=== PATIENT | male | born 1980 | race Caucasian/White ===

== ENCOUNTER 2023-02-21 19:37 | Inpatient (IN) | payer MEDICAID ==
[~2023-02-21] VITALS: Ht 180.3 cm; Wt 92.7 kg
[2023-02-21 19:44] VITALS: BP 106/54; PULSE 56; RESP 17; TEMP 98.3; O2SAT 98
[2023-02-21 20:44] VITALS: O2SAT 98
[2023-02-21 22:13] LABS: EOSINOPHILS # (AUTO) 0.1 K/uL (0-0.4); EOSINOPHILS % (AUTO) 1.1 % (0.0-4.0); HEMATOCRIT 36.6 % (36-52); HEMOGLOBIN 12.4 g/dL (12.0-18.0); LYMPHOCYTES # (AUTO) 2.1 K/uL (2.0-11.5); LYMPHOCYTES % (AUTO) 28.9 % (20.5-51.1); MEAN CORPUSCULAR HEMOGLOBIN 32 pg (27-31); MEAN CORPUSCULAR HGB CONC 34 g/dL (33-37); MEAN CORPUSCULAR VOLUME 95.4 fL (80-94); MONOCYTES # (AUTO) 0.7 K/uL (0.8-1.0); MONOCYTES % (AUTO) 9.5 % (1.7-9.3); NEUTROPHILS # (AUTO) 4.2 K/uL (1.8-7.7); NEUTROPHILS % (AUTO) 59.5 % (42.2-75.2); RED BLOOD CELL COUNT(AUTO) 3.84 MIL/uL (4.20-6.10); RED CELL DISTRIBUTION WIDTH 16.2 % (11.6-13.7); WHITE BLOOD COUNT (AUTO) 7.1 K/uL (4.8-10.8)
[2023-02-21 22:23] LABS: ANION GAP 11.2 (8-16); CALCIUM 9.8 mg/dL (8.5-10.1); CARBON DIOXIDE 33.1 mmol/L (21-32); CREATININE 0.7 mg/dL (0.6-1.3); POTASSIUM 5.3 mmol/L (3.5-5.1)
[2023-02-21 22:53] LABS: BASOPHILS # (AUTO) 0.1 K/uL (0.00-0.22)
[2023-02-21 22:55] LABS: PLATELET COUNT (AUTO) 38 K/uL (140-450)
[2023-02-22] VITALS (8 sets, daily range): BP systolic 111–133; BP diastolic 60–88; PULSE 60–81; RESP 18–20; TEMP 96.9–98.1; O2SAT 97–100
[2023-02-22] MEDS ORDERED: LORazepam 2 MG/ML VIAL ONE ×2 (01:31→05:16)
[2023-02-22] MEDS: LORazepam 2 MG/ML VIAL IVP ONE ×3 (02:49→05:59)
[2023-02-22] MEDS ORDERED: MIDAZOLAM 5 MG/1 ML VIAL ONE (04:57)
[2023-02-22] MEDS ORDERED: HYDROcodone/APAP 5/325 MG 1 TAB TAB PO PRN (05:15)
[2023-02-22] MEDS ORDERED: ACETAMINOPHEN 325 MG TAB PO PRN (05:15)
[2023-02-22] MEDS ORDERED: ALBUTEROL 0.083% 2.5 MG/3 ML NEBU INH PRN (05:15)
[2023-02-22] MEDS ORDERED: MORPHINE SULFATE 4 MG/ML SYR IVP PRN (05:15)
[2023-02-22] MEDS: NACL 0.9% 1,000 ML IV ONE (05:59)
[2023-02-22] MEDS: MIDAZOLAM 5 MG/5 ML VIAL IV ONE (06:29)
[2023-02-22] MEDS: IPRATROPIUM 0.02% 0.5 MG/2.5 ML NEBU INH SCH (07:00)
[2023-02-22] MEDS: levETIRAcetam 1,000 MG in NACL 0.9% 100 ML IV ONE (08:09)
[2023-02-22] MEDS: DEXT 5% / NACL 0.45% 1,000 ML IV SCH (09:22)
[2023-02-22] MEDS: LORazepam 2 MG/ML VIAL IVP PRN ×2 (10:01→12:32)
[2023-02-22] MEDS ORDERED: DIVALPROEX 500 MG TABEC PO SCH (12:10)
[2023-02-22] MEDS: DIVALPROEX 500 MG TABEC PO SCH (13:00)
[2023-02-22] MEDS: LORazepam 2 MG/ML VIAL IM/IVP PRN (15:16)
[2023-02-22 18:30] LABS: BASOPHILS % (AUTO) 0.6 % (0.0-2.0); EOSINOPHILS # (AUTO) 0.1 K/uL (0-0.4); HEMATOCRIT 34.2 % (36-52); HEMOGLOBIN 11.6 g/dL (12.0-18.0); LYMPHOCYTES # (AUTO) 1.2 K/uL (2.0-11.5); LYMPHOCYTES % (AUTO) 20.6 % (20.5-51.1); MEAN CORPUSCULAR HEMOGLOBIN 33 pg (27-31); MEAN CORPUSCULAR HGB CONC 34 g/dL (33-37); MEAN CORPUSCULAR VOLUME 95.7 fL (80-94); MONOCYTES # (AUTO) 0.6 K/uL (0.8-1.0); MONOCYTES % (AUTO) 9.9 % (1.7-9.3); NEUTROPHILS % (AUTO) 67.9 % (42.2-75.2); PLATELET COUNT (AUTO) 97 K/uL (140-450); RED BLOOD CELL COUNT(AUTO) 3.58 MIL/uL (4.20-6.10); RED CELL DISTRIBUTION WIDTH 16.4 % (11.6-13.7)
[2023-02-22 18:43] LABS: ALBUMIN 3.4 g/dL (3.4-5.0); ANION GAP 10.7 (8-16); CALCIUM 8.8 mg/dL (8.5-10.1); CARBON DIOXIDE 26.6 mmol/L (21-32); CREATININE 0.6 mg/dL (0.6-1.3); POTASSIUM 5.3 mmol/L (3.5-5.1); TOTAL BILIRUBIN 0.4 mg/dL (0.0-1.0); TOTAL PROTEIN, SERUM 6.8 g/dL (6.4-8.2)
[2023-02-22] MEDS: levETIRAcetam 1,500 MG in NACL 0.9% 100 ML IV SCH (20:13)
[2023-02-22] MEDS ORDERED: levETIRAcetam 500 MG in NACL 0.9% 100 ML IV SCH (21:00)
[2023-02-23] VITALS (13 sets, daily range): BP systolic 114–129; BP diastolic 62–80; PULSE 55–86; RESP 16–20; TEMP 96.7–98.2; O2SAT 93–99
[2023-02-23 06:57] LABS: BASOPHILS % (AUTO) 0.3 % (0.0-2.0); EOSINOPHILS % (AUTO) 0.4 % (0.0-4.0); HEMOGLOBIN 12.1 g/dL (12.0-18.0); LYMPHOCYTES # (AUTO) 1.4 K/uL (2.0-11.5); LYMPHOCYTES % (AUTO) 22.1 % (20.5-51.1); MEAN CORPUSCULAR HEMOGLOBIN 32 pg (27-31); MEAN CORPUSCULAR HGB CONC 34 g/dL (33-37); MEAN CORPUSCULAR VOLUME 95.2 fL (80-94); MONOCYTES # (AUTO) 0.7 K/uL (0.8-1.0); MONOCYTES % (AUTO) 11.2 % (1.7-9.3); NEUTROPHILS # (AUTO) 4.1 K/uL (1.8-7.7); PLATELET COUNT (AUTO) 124 K/uL (140-450); RED BLOOD CELL COUNT(AUTO) 3.78 MIL/uL (4.20-6.10); RED CELL DISTRIBUTION WIDTH 16.3 % (11.6-13.7); WHITE BLOOD COUNT (AUTO) 6.2 K/uL (4.8-10.8)
[2023-02-23 07:37] LABS: ALBUMIN 3.9 g/dL (3.4-5.0); ANION GAP 10.7 (8-16); CALCIUM 9.4 mg/dL (8.5-10.1); CREATININE 0.5 mg/dL (0.6-1.3); POTASSIUM 4.7 mmol/L (3.5-5.1); TOTAL BILIRUBIN 0.4 mg/dL (0.0-1.0); TOTAL PROTEIN, SERUM 7.6 g/dL (6.4-8.2)
[2023-02-23] MEDS ORDERED: clonazePAM 0.5 MG TAB PO PRN (08:00)
[2023-02-23] MEDS: PANTOPRAZOLE 40 MG INJ VIAL IVP SCH (08:55)
[2023-02-23] MEDS ORDERED: DIVA250E1 PO (11:01)
[2023-02-23] MEDS ORDERED: CETI1SOL PO (11:01)
[2023-02-23] MEDS ORDERED: DOCU100T42 PO (11:01)
[2023-02-23] MEDS ORDERED: BENZ-315 PO (11:01)
[2023-02-23] MEDS ORDERED: CLON0.5T PO (11:01)
[2023-02-23] MEDS ORDERED: OSC500 PO (11:01)
[2023-02-23] MEDS ORDERED: CLON1TAB PO (11:01)
[2023-02-23] MEDS ORDERED: LACO200T PO (11:05)
[2023-02-23] MEDS ORDERED: LEVE500T9 PO (11:05)
[2023-02-23] MEDS ORDERED: LACT10SO93 PO (11:05)
[2023-02-24] VITALS (14 sets, daily range): BP systolic 114–127; BP diastolic 56–82; PULSE 67–86; RESP 16–24; TEMP 97.6–98.8; O2SAT 90–98
[2023-02-24 06:47] LABS: BASOPHILS % (AUTO) 0.2 % (0.0-2.0); EOSINOPHILS % (AUTO) 0.1 % (0.0-4.0); HEMATOCRIT 33.6 % (36-52); HEMOGLOBIN 11.1 g/dL (12.0-18.0); LYMPHOCYTES # (AUTO) 0.8 K/uL (2.0-11.5); LYMPHOCYTES % (AUTO) 3.6 % (20.5-51.1); MEAN CORPUSCULAR HEMOGLOBIN 31 pg (27-31); MEAN CORPUSCULAR HGB CONC 33 g/dL (33-37); MEAN CORPUSCULAR VOLUME 94.5 fL (80-94); MONOCYTES # (AUTO) 2.2 K/uL (0.8-1.0); NEUTROPHILS # (AUTO) 19.3 K/uL (1.8-7.7); NEUTROPHILS % (AUTO) 86.1 % (42.2-75.2); PLATELET COUNT (AUTO) 143 K/uL (140-450); RED BLOOD CELL COUNT(AUTO) 3.55 MIL/uL (4.20-6.10); RED CELL DISTRIBUTION WIDTH 16.4 % (11.6-13.7); WHITE BLOOD COUNT (AUTO) 22.3 K/uL (4.8-10.8)
[2023-02-24 07:23] LABS: ALBUMIN 3.2 g/dL (3.4-5.0); ANION GAP 11.9 (8-16); CARBON DIOXIDE 27.5 mmol/L (21-32); CREATININE 0.7 mg/dL (0.6-1.3); POTASSIUM 4.4 mmol/L (3.5-5.1); TOTAL BILIRUBIN 0.5 mg/dL (0.0-1.0); TOTAL PROTEIN, SERUM 7.3 g/dL (6.4-8.2)
[2023-02-24] MEDS: clonazePAM 0.5 MG TAB PO SCH (08:43)
[2023-02-24 09:44] LABS: LACTIC ACID 1.8 mmol/L (0.4-2.0)
[2023-02-24] MEDS: TOBRAMYCIN 0.3% OPTH SOL 5 ML BTL OP SCH (11:55)
[2023-02-24] MEDS: PIPERACILLIN/TAZOBACTAM 3.375 GM in DEXTROSE 5% 50 ML IV SCH (12:00)
[2023-02-24] MEDS: clonazePAM 0.5 MG TAB ONE (20:42)
[2023-02-25] VITALS (15 sets, daily range): BP systolic 111–147; BP diastolic 41–82; PULSE 60–87; RESP 16–18; TEMP 96.8–97.5; O2SAT 93–99
[2023-02-25 10:52] LABS: BASOPHILS % (AUTO) 0.4 % (0.0-2.0); EOSINOPHILS # (AUTO) 0.2 K/uL (0-0.4); EOSINOPHILS % (AUTO) 1.7 % (0.0-4.0); HEMATOCRIT 32.8 % (36-52); HEMOGLOBIN 11.1 g/dL (12.0-18.0); LYMPHOCYTES % (AUTO) 19.9 % (20.5-51.1); MEAN CORPUSCULAR HEMOGLOBIN 32 pg (27-31); MEAN CORPUSCULAR HGB CONC 34 g/dL (33-37); MEAN CORPUSCULAR VOLUME 95.5 fL (80-94); MONOCYTES # (AUTO) 1.1 K/uL (0.8-1.0); MONOCYTES % (AUTO) 11.1 % (1.7-9.3); NEUTROPHILS # (AUTO) 6.8 K/uL (1.8-7.7); NEUTROPHILS % (AUTO) 66.9 % (42.2-75.2); PLATELET COUNT (AUTO) 127 K/uL (140-450); RED BLOOD CELL COUNT(AUTO) 3.44 MIL/uL (4.20-6.10); RED CELL DISTRIBUTION WIDTH 16.8 % (11.6-13.7); WHITE BLOOD COUNT (AUTO) 10.3 K/uL (4.8-10.8)
[2023-02-25 11:13] LABS: ALBUMIN 2.9 g/dL (3.4-5.0); ANION GAP 10.7 (8-16); CARBON DIOXIDE 27.9 mmol/L (21-32); CREATININE 0.7 mg/dL (0.6-1.3); POTASSIUM 3.6 mmol/L (3.5-5.1); TOTAL BILIRUBIN 0.6 mg/dL (0.0-1.0); TOTAL PROTEIN, SERUM 6.8 g/dL (6.4-8.2)
[2023-02-25] MEDS: AMOXIL/CLAVULANATE 500/125 MG 1 TAB GT SCH (21:00)
[2023-02-26] VITALS (12 sets, daily range): BP systolic 120–127; BP diastolic 71–78; PULSE 68–87; RESP 16–19; TEMP 96.3–97.5; O2SAT 90–98
[2023-02-26] MEDS: levETIRAcetam 100 MG/ML ORASYR GT SCH (01:37)
[2023-02-26 06:37] LABS: BASOPHILS # (AUTO) 0.1 K/uL (0.00-0.22); BASOPHILS % (AUTO) 0.6 % (0.0-2.0); EOSINOPHILS # (AUTO) 0.2 K/uL (0-0.4); EOSINOPHILS % (AUTO) 2.2 % (0.0-4.0); HEMATOCRIT 33.6 % (36-52); HEMOGLOBIN 11.3 g/dL (12.0-18.0); LYMPHOCYTES # (AUTO) 2.6 K/uL (2.0-11.5); MEAN CORPUSCULAR HEMOGLOBIN 32 pg (27-31); MEAN CORPUSCULAR HGB CONC 34 g/dL (33-37); MEAN CORPUSCULAR VOLUME 95.7 fL (80-94); MONOCYTES # (AUTO) 1.5 K/uL (0.8-1.0); MONOCYTES % (AUTO) 14.7 % (1.7-9.3); NEUTROPHILS # (AUTO) 5.6 K/uL (1.8-7.7); NEUTROPHILS % (AUTO) 56.5 % (42.2-75.2); PLATELET COUNT (AUTO) 151 K/uL (140-450); RED BLOOD CELL COUNT(AUTO) 3.51 MIL/uL (4.20-6.10); RED CELL DISTRIBUTION WIDTH 16.7 % (11.6-13.7)
[2023-02-26 07:08] LABS: ALBUMIN 3.1 g/dL (3.4-5.0); ANION GAP 12.3 (8-16); CALCIUM 9.3 mg/dL (8.5-10.1); CARBON DIOXIDE 29.8 mmol/L (21-32); CREATININE 0.6 mg/dL (0.6-1.3); POTASSIUM 4.1 mmol/L (3.5-5.1); TOTAL BILIRUBIN 0.5 mg/dL (0.0-1.0); TOTAL PROTEIN, SERUM 7.2 g/dL (6.4-8.2)
[2023-02-26] MEDS: VALPROIC ACID 250 MG/5 ML UDC PO SCH (14:37)
[2023-02-27] VITALS (8 sets, daily range): BP systolic 114–129; BP diastolic 46–93; PULSE 65–87; RESP 16–20; TEMP 97.1–98; O2SAT 95–98
[2023-02-27] MEDS ORDERED: NON-FORMULARY ITEM (Lacosamide (Vimpat) 200 MG) PO SCH ×2 (09:00→09:05)
[2023-02-27] MEDS: LACOSAMIDE 10 MG/ML GT SCH (10:33)
[2023-02-28] VITALS (7 sets, daily range): BP systolic 117–118; BP diastolic 46–61; PULSE 69–85; RESP 16–20; TEMP 96.5–97.6; O2SAT 95–99
[2023-03-02] MEDS ORDERED: LORazepam 2 MG/ML VIAL ONE (20:23)
[2023-03-02] MEDS ORDERED: VALPROIC ACID 250 MG/5 ML UDC ONE (20:43)
[2023-03-02] MEDS ORDERED: clonazePAM 0.5 MG TAB ONE (20:44)
[2023-03-02] MEDS ORDERED: BENZTROPINE 1 MG TAB ONE (20:45)
== END 2023-02-28 17:13 | DRG 53 ==
LOC: MED 19:37 → MTU 02-22 05:25
PROVIDERS: ADMIT Family Medicine; ATTEND Family Medicine
PROC: 05HY33Z Insertion of Infusion Device into Upper Vein, Percutaneous Approach (ICD-10-PCS; 2023-02-22)
PROC: B54MZZA Ultrasonography of Right Upper Extremity Veins, Guidance (ICD-10-PCS; 2023-02-22)
PROC: 4A00X4Z Measurement of Central Nervous Electrical Activity, External Approach (ICD-10-PCS; principal; 2023-02-24)
DX: G40.909 Epilepsy, unspecified, not intractable, without status epilepticus (principal); J18.9 Pneumonia, unspecified organism; R65.10 Systemic inflammatory response syndrome (SIRS) of non-infectious origin without acute organ dysfunction; E44.1 Mild protein-calorie malnutrition; E87.1 Hypo-osmolality and hyponatremia; G40.834 Dravet syndrome, intractable, without status epilepticus; E87.5 Hyperkalemia; I10 Essential (primary) hypertension; E66.9 Obesity, unspecified; H10.89 Other conjunctivitis; Z68.28 Body mass index [BMI] 28.0-28.9, adult
CPT/HCPCS: 36415; 70450; 71045; 80048; 80053; 83605; 85025; 87040; 92526; 93005; 94640; 95816; 96374; 96375; 96376; 99291; C9113; J1953; J2060; J2250; J2543; J7060; J7644

== ENCOUNTER 2023-02-28 22:37 | Inpatient (IN) | payer MEDICAID ==
[~2023-02-28] VITALS: Ht 165.1 cm; Wt 100.4 kg
[~2023-02-28 22:37] MED LIST: BENZ-315 PO; CETI1SOL PO; CLON0.5T PO; CLON1TAB PO; DIVA250E1 PO; DOCU100T42 PO; LACO200T PO; LACT10SO93 PO; LEVE500T9 PO; OSC500 PO
[2023-02-28 22:42] VITALS: BP 139/45; PULSE 88; RESP 20; TEMP 97.8; O2SAT 93
[2023-02-28 23:38] LABS: APPEARANCE,URINE CLEAR (CLEAR); BILIRUBIN,URINE NEGATIVE (NEGATIVE); BLOOD, URINE NEGATIVE (NEGATIVE); COLOR,URINE YELLOW (YELLOW); LEUKOCYTE ESTERASE ,URINE NEGATIVE (NEGATIVE); NITRITE, URINE NEGATIVE (NEGATIVE); PROTEIN,URINE NEGATIVE (NEGATIVE); UGLUCOSE NEGATIVE (NEGATIVE)
[2023-03-01 00:16] LABS: BASOPHILS # (AUTO) 0.1 K/uL (0.00-0.22); BASOPHILS % (AUTO) 1.1 % (0.0-2.0); EOSINOPHILS # (AUTO) 0.2 K/uL (0-0.4); EOSINOPHILS % (AUTO) 1.9 % (0.0-4.0); HEMOGLOBIN 11.8 g/dL (12.0-18.0); LYMPHOCYTES % (AUTO) 21.9 % (20.5-51.1); MEAN CORPUSCULAR HEMOGLOBIN 33 pg (27-31); MEAN CORPUSCULAR HGB CONC 34 g/dL (33-37); MEAN CORPUSCULAR VOLUME 97.3 fL (80-94); MONOCYTES # (AUTO) 1.3 K/uL (0.8-1.0); MONOCYTES % (AUTO) 14.1 % (1.7-9.3); NEUTROPHILS # (AUTO) 5.5 K/uL (1.8-7.7); PLATELET COUNT (AUTO) 207 K/uL (140-450); RED BLOOD CELL COUNT(AUTO) 3.59 MIL/uL (4.20-6.10); RED CELL DISTRIBUTION WIDTH 16.8 % (11.6-13.7)
[2023-03-01 00:28] LABS: ANION GAP 0.9 (8-16); CALCIUM 9.3 mg/dL (8.5-10.1); CARBON DIOXIDE 34.3 mmol/L (21-32); CREATININE 0.7 mg/dL (0.6-1.3); POTASSIUM 4.2 mmol/L (3.5-5.1)
[2023-03-01 00:35] LABS: ALANINE AMINOTRANSFERASE 21 U/L (12-78); ALBUMIN 3.2 g/dL (3.4-5.0); ALKALINE PHOSPHATASE 93 U/L (50-136); ASPARTATE AMINOTRANSFERASE 16 U/L (15-37); BILIRUBIN,DIRECT 0.1 mg/dL (0.0-0.3); TOTAL BILIRUBIN 0.4 mg/dL (0.0-1.0); TOTAL PROTEIN, SERUM 7.3 g/dL (6.4-8.2)
[2023-03-01 00:36] LABS: LACTIC ACID 1.1 mmol/L (0.4-2.0)
[2023-03-01 00:59] LABS: INR 1.05 (0.8-1.2); PARTIAL THROMBOPLASTIN TIME 24.4 secs (22-35.6)
[2023-03-01] MEDS: NACL 0.9% 1,000 ML IV SCH ×2 (05:00→16:23)
[2023-03-01] MEDS: DIVALPROEX 500 MG TABEC PO SCH ×2 (05:21→13:21)
[2023-03-01] MEDS: LORazepam 2 MG/ML VIAL IVP PRN ×7 (05:51→17:55)
[2023-03-01] MEDS: LACOSAMIDE 100 MG TAB PO SCH ×2 (09:00→09:53)
[2023-03-01] MEDS: clonazePAM 0.5 MG TAB PO SCH ×3 (09:00→20:59)
[2023-03-01] MEDS ORDERED: levETIRAcetam 500 MG TAB PO SCH (09:00)
[2023-03-01] MEDS ORDERED: DOCUSATE SODIUM 100 MG GELCAP PO PRN (09:00)
[2023-03-01] MEDS: BENZTROPINE 1 MG TAB PO SCH ×3 (09:00→20:59)
[2023-03-01] MEDS: CALCIUM CARBONATE 500 MG TAB PO SCH ×2 (09:00→09:54)
[2023-03-01] MEDS ORDERED: levETIRAcetam 1,000 MG in NACL 0.9% 100 ML IV SCH (11:30)
[2023-03-01 18:30] VITALS: RESP 16; O2SAT 96
[2023-03-01 20:00] VITALS: BP 125/78; PULSE 60; PULSE 63; RESP 17; TEMP 97.3; O2SAT 97
[2023-03-01] MEDS ORDERED: VALPROIC ACID 250 MG/5 ML UDC PO ONE (23:00)
[2023-03-02] VITALS: BP 130/72; PULSE 54; PULSE 58; RESP 18; TEMP 97; O2SAT 99
[2023-03-02] MEDS ORDERED: VALPROIC ACID 250 MG/5 ML UDC ONE (00:12)
[2023-03-02] MEDS: LORazepam 2 MG/ML VIAL IVP PRN ×2 (00:19→21:02)
[2023-03-02 04:00] VITALS: BP 125/71; PULSE 49; PULSE 53; RESP 18; TEMP 97; O2SAT 95
[2023-03-02] MEDS ORDERED: VALPROIC ACID 250 MG/5 ML UDC PO SCH (05:00)
[2023-03-02] MEDS: VALPROIC ACID 250 MG/5 ML UDC PO SCH ×3 (05:54→22:49)
[2023-03-02 06:35] LABS: BASOPHILS % (AUTO) 0.4 % (0.0-2.0); EOSINOPHILS # (AUTO) 0.2 K/uL (0-0.4); EOSINOPHILS % (AUTO) 2.7 % (0.0-4.0); HEMOGLOBIN 10.8 g/dL (12.0-18.0); LYMPHOCYTES # (AUTO) 1.9 K/uL (2.0-11.5); LYMPHOCYTES % (AUTO) 31.6 % (20.5-51.1); MEAN CORPUSCULAR HEMOGLOBIN 32 pg (27-31); MEAN CORPUSCULAR HGB CONC 34 g/dL (33-37); MEAN CORPUSCULAR VOLUME 95.3 fL (80-94); MONOCYTES # (AUTO) 0.6 K/uL (0.8-1.0); MONOCYTES % (AUTO) 9.7 % (1.7-9.3); NEUTROPHILS # (AUTO) 3.4 K/uL (1.8-7.7); NEUTROPHILS % (AUTO) 55.6 % (42.2-75.2); PLATELET COUNT (AUTO) 188 K/uL (140-450); RED BLOOD CELL COUNT(AUTO) 3.35 MIL/uL (4.20-6.10); RED CELL DISTRIBUTION WIDTH 16.8 % (11.6-13.7)
[2023-03-02] MEDS: NACL 0.9% 1,000 ML IV SCH (06:41)
[2023-03-02 08:00] VITALS: BP 107/52; PULSE 50; PULSE 51; RESP 18; TEMP 96.4; O2SAT 99
[2023-03-02 08:11] LABS: ANION GAP 13.5 (8-16); CALCIUM 9.5 mg/dL (8.5-10.1); CARBON DIOXIDE 29.5 mmol/L (21-32); CREATININE 0.4 mg/dL (0.6-1.3)
[2023-03-02] MEDS ORDERED: levETIRAcetam 1,000 MG in NACL 0.9% 100 ML IV SCH (09:00)
[2023-03-02] MEDS: clonazePAM 0.5 MG TAB PO SCH (09:43)
[2023-03-02] MEDS: LACOSAMIDE 100 MG TAB PO SCH (09:43)
[2023-03-02] MEDS: BENZTROPINE 1 MG TAB PO SCH ×2 (09:44→22:49)
[2023-03-02] MEDS: CALCIUM CARBONATE 500 MG TAB PO SCH (09:44)
[2023-03-02 12:00] VITALS: BP 123/50; PULSE 57; PULSE 59; RESP 18; TEMP 96.3; O2SAT 98
[2023-03-02 16:00] VITALS: BP 119/63; PULSE 53; PULSE 55; RESP 18; TEMP 96.3; O2SAT 96
[2023-03-02 20:00] VITALS: BP 122/72; PULSE 61; PULSE 78; RESP 20; TEMP 98; O2SAT 96; O2SAT 97
[2023-03-03] VITALS (9 sets, daily range): BP systolic 118–142; BP diastolic 60–70; PULSE 56–98; RESP 18–20; TEMP 96.5–98.5; O2SAT 95–98
[2023-03-03] MEDS: NACL 0.9% 1,000 ML IV SCH (01:18)
[2023-03-03] MEDS: clonazePAM 0.5 MG TAB PO SCH ×4 (01:40→18:53)
[2023-03-03] MEDS: VALPROIC ACID 250 MG/5 ML UDC PO SCH ×3 (06:39→21:00)
[2023-03-03] MEDS ORDERED: levETIRAcetam 1,500 MG in NACL 0.9% 100 ML IV SCH (09:00)
[2023-03-03] MEDS: LACOSAMIDE 100 MG TAB PO SCH ×3 (09:14→21:00)
[2023-03-03] MEDS: CALCIUM CARBONATE 500 MG TAB PO SCH (09:15)
[2023-03-03] MEDS: BENZTROPINE 1 MG TAB PO SCH ×2 (09:16→21:00)
[2023-03-03 11:07] LABS: BASOPHILS % (AUTO) 0.3 % (0.0-2.0); EOSINOPHILS # (AUTO) 0.1 K/uL (0-0.4); EOSINOPHILS % (AUTO) 0.8 % (0.0-4.0); HEMATOCRIT 34.2 % (36-52); HEMOGLOBIN 11.4 g/dL (12.0-18.0); LYMPHOCYTES # (AUTO) 0.8 K/uL (2.0-11.5); LYMPHOCYTES % (AUTO) 7.3 % (20.5-51.1); MEAN CORPUSCULAR HEMOGLOBIN 32 pg (27-31); MEAN CORPUSCULAR HGB CONC 33 g/dL (33-37); MEAN CORPUSCULAR VOLUME 97.4 fL (80-94); MONOCYTES # (AUTO) 0.9 K/uL (0.8-1.0); MONOCYTES % (AUTO) 7.5 % (1.7-9.3); NEUTROPHILS # (AUTO) 9.8 K/uL (1.8-7.7); NEUTROPHILS % (AUTO) 84.1 % (42.2-75.2); PLATELET COUNT (AUTO) 237 K/uL (140-450); RED BLOOD CELL COUNT(AUTO) 3.51 MIL/uL (4.20-6.10); RED CELL DISTRIBUTION WIDTH 17.4 % (11.6-13.7); WHITE BLOOD COUNT (AUTO) 11.7 K/uL (4.8-10.8)
[2023-03-03 11:56] LABS: ANION GAP 14.1 (8-16); CALCIUM 9.4 mg/dL (8.5-10.1); CARBON DIOXIDE 30.8 mmol/L (21-32); CREATININE 0.6 mg/dL (0.6-1.3); POTASSIUM 3.9 mmol/L (3.5-5.1)
[2023-03-03] MEDS ORDERED: NACL 0.9% 1,000 ML IV SCH (15:15)
[2023-03-03] MEDS: DEXT 5% / NACL 0.45% 1,000 ML IV SCH (22:07)
[2023-03-03] MEDS: levETIRAcetam 1,500 MG in NACL 0.9% 100 ML IV SCH (22:09)
[2023-03-04] VITALS (7 sets, daily range): BP systolic 116–128; BP diastolic 66–78; PULSE 69–92; RESP 17–24; TEMP 96.8–98.8; O2SAT 93–99
[2023-03-04] MEDS: LORazepam 2 MG/ML VIAL IVP PRN ×2 (02:23→16:29)
[2023-03-04] MEDS: VALPROIC ACID 250 MG/5 ML UDC PO SCH ×3 (05:00→16:49)
[2023-03-04] MEDS: clonazePAM 0.5 MG TAB PO SCH ×4 (06:00→17:02)
[2023-03-04] MEDS: BENZTROPINE 1 MG TAB PO SCH (09:44)
[2023-03-04] MEDS: CALCIUM CARBONATE 500 MG TAB PO SCH (09:44)
[2023-03-04] MEDS: LACOSAMIDE 100 MG TAB PO SCH (09:45)
[2023-03-04] MEDS: levETIRAcetam 1,500 MG in NACL 0.9% 100 ML IV SCH (10:13)
[2023-03-04] MEDS: DEXT 5% / NACL 0.45% 1,000 ML IV SCH (17:02)
[2023-03-05] VITALS: BP 128/69; PULSE 70; RESP 18; TEMP 97.9; O2SAT 98
[2023-03-05 00:02] VITALS: PULSE 71
[2023-03-05] MEDS: levETIRAcetam 1,500 MG in NACL 0.9% 100 ML IV SCH ×2 (00:54→08:53)
[2023-03-05] MEDS: BENZTROPINE 1 MG TAB PO SCH ×2 (00:54→08:50)
[2023-03-05] MEDS: LACOSAMIDE 100 MG TAB PO SCH ×3 (00:55→19:50)
[2023-03-05] MEDS: clonazePAM 0.5 MG TAB PO SCH ×5 (00:56→19:49)
[2023-03-05] MEDS: VALPROIC ACID 250 MG/5 ML UDC PO SCH ×3 (00:57→13:09)
[2023-03-05 04:00] VITALS: BP 121/65; PULSE 70; PULSE 74; RESP 18; TEMP 97.6; O2SAT 98
[2023-03-05 07:34] LABS: BASOPHILS % (AUTO) 0.4 % (0.0-2.0); EOSINOPHILS # (AUTO) 0.1 K/uL (0-0.4); EOSINOPHILS % (AUTO) 1.2 % (0.0-4.0); HEMATOCRIT 29.7 % (36-52); HEMOGLOBIN 10.2 g/dL (12.0-18.0); LYMPHOCYTES # (AUTO) 1.1 K/uL (2.0-11.5); MEAN CORPUSCULAR HEMOGLOBIN 33 pg (27-31); MEAN CORPUSCULAR HGB CONC 34 g/dL (33-37); MONOCYTES # (AUTO) 1.3 K/uL (0.8-1.0); NEUTROPHILS # (AUTO) 4.6 K/uL (1.8-7.7); PLATELET COUNT (AUTO) 220 K/uL (140-450); RED BLOOD CELL COUNT(AUTO) 3.06 MIL/uL (4.20-6.10); RED CELL DISTRIBUTION WIDTH 17.4 % (11.6-13.7); WHITE BLOOD COUNT (AUTO) 7.2 K/uL (4.8-10.8)
[2023-03-05 07:54] LABS: ANION GAP 9.2 (8-16); CALCIUM 9.3 mg/dL (8.5-10.1); CARBON DIOXIDE 31.4 mmol/L (21-32); CREATININE 0.6 mg/dL (0.6-1.3); POTASSIUM 3.6 mmol/L (3.5-5.1)
[2023-03-05 08:00] VITALS: BP 123/58; PULSE 58; RESP 18; TEMP 96; O2SAT 100; O2SAT 93
[2023-03-05 08:04] LABS: LYMPHOCYTES % (AUTO) 15.4 % (20.5-51.1); MONOCYTES % (AUTO) 18.7 % (1.7-9.3); NEUTROPHILS % (AUTO) 64.3 % (42.2-75.2)
[2023-03-05] MEDS: CALCIUM CARBONATE 500 MG TAB PO SCH (08:50)
[2023-03-05] MEDS ORDERED: CLON0.5T4 PO (10:22)
[2023-03-05] MEDS ORDERED: LEVE1000 PO (10:22)
[2023-03-05] MEDS ORDERED: VALP-22 PO (10:22)
[2023-03-05] MEDS ORDERED: FUROSEMIDE 20 MG/2 ML VIAL IVP SCH (10:31)
[2023-03-05 12:00] VITALS: BP 116/69; PULSE 62; RESP 18; TEMP 96.8; O2SAT 100
[2023-03-05 16:00] VITALS: BP 130/76; PULSE 68; RESP 18; TEMP 96.5; O2SAT 100
== END 2023-03-05 20:00 | disposition home or self-care (01) | DRG 53 ==
LOC: MED 22:37 → MTU 03-01 02:01
PROVIDERS: ADMIT Internal Medicine; ATTEND Internal Medicine
DX: G40.909 Epilepsy, unspecified, not intractable, without status epilepticus (principal); J96.22 Acute and chronic respiratory failure with hypercapnia; E44.1 Mild protein-calorie malnutrition; D72.829 Elevated white blood cell count, unspecified; E87.1 Hypo-osmolality and hyponatremia; J45.909 Unspecified asthma, uncomplicated; E66.9 Obesity, unspecified; G40.834 Dravet syndrome, intractable, without status epilepticus; H10.89 Other conjunctivitis; Z68.41 Body mass index [BMI] 40.0-44.9, adult
CPT/HCPCS: 36415; 70450; 71045; 80048; 80076; 81003; 82140; 82948; 83605; 83735; 83880; 84484; 85025; 85610; 85730; 87040; 87081; 87086; 93005; 99285; J1940; J1953; J2060; Q0092